=== PATIENT | male | born 2000 | race American Indian/Alaskan Native ===

== ENCOUNTER 2021-02-05 08:25 | Emergency (ER) | payer SELFPAY ==
--- NOTE | 2021-02-05 10:03 | Emergency Department Report ---
HPI - General Chief Complaint: Urogenital-Male Time Seen by Provider: 02/05/21 09:52 - HPI HPI: Room 40 Patient is a 20-year-old male present with a chief complaint of abscesses of groin and buttocks. Patient states she has had multiple abscesses in his groin bilaterally, under the scrotum and on his left gluteus which have been draining intermittently for several months. Patient states he did not seek medical attention was trying to treated at home with home remedies. The patient states today he just got tired of trying to treated at home and decided to get medical attention. Patient denies history of fever ED Past Medical Hx - Past Medical History Previous Medical History?: No - Surgical History Past Surgical History?: No - Family History Family history: no significant - Social History Smoking Status: Current Every Day Smoker (3 cigarettes daily) Substance Use Type: Alcohol (Occasional) - Medications Home Medications: Home Medications Medication Instructions Recorded Confirmed Last Taken Type HYDROcodone/APAP 5-325 [Townsend 1 - 2 each PO Q6HR PRN #10 tablet 02/05/21 Unknown Rx 5/325] Ibuprofen [Motrin 800 MG tab] 800 mg PO Q8HR PRN #20 tablet 02/05/21 Unknown Rx Sulfamethoxazole/Trimethoprim 1 each PO BID #14 tablet 02/05/21 Unknown Rx [Bactrim DS TAB] ED Review of Systems ROS: Stated complaint: POSSIBLE BACTERIA INFECTION Other details as noted in HPI Constitutional: denies: fever Eyes: denies: eye pain ENT: denies: throat pain Respiratory: no symptoms reported Cardiovascular: denies: chest pain Endocrine: no symptoms reported Gastrointestinal: denies: abdominal pain Genitourinary: denies: dysuria Musculoskeletal: denies: back pain Skin: lesions Neurological: denies: headache Physical Exam - Physical Exam Vital Signs: Vital Signs 02/05/21 08:33 Temperature 98.8 F Pulse Rate 106 H Respiratory 18 Rate Blood Pressure 141/77 O2 Sat by Pulse 99 Oximetry Physical Exam: GENERAL: The patient is well-developed well-nourished male lying on stretcher not appearing to be in acute distress. [] HEENT: Normocephalic. Atraumatic. Extraocular motions are intact. Patient has moist mucous membranes. NECK: Supple. Trachea midline CHEST/LUNGS: Clear to auscultation. There is no respiratory distress noted. HEART/CARDIOVASCULAR: Regular. There is no tachycardia. There is no gallop rub or murmur. ABDOMEN: Abdomen is soft, nontender. Patient has normal bowel sounds. There is no abdominal distention. SKIN: There is no rash. There is no edema. There is no diaphoresis. There are areas of chronic appearing skin sores of varying stages in the perineum. No active drainage appreciated. There is a large approximately 3 cm diameter region of fluctuance to the left buttocks near the gluteal cleft that is tender to palpation. NEURO: The patient is awake, alert, and oriented. The patient is cooperative. The patient has no focal neurologic deficits. The patient has normal speech MUSCULOSKELETAL: There is no evidence of acute injury. ED Course Vital Signs 02/05/21 08:33 Temperature 98.8 F Pulse Rate 106 H Respiratory 18 Rate Blood Pressure 141/77 O2 Sat by Pulse 99 Oximetry ED Medical Decision Making - Lab Data Laboratory Tests 02/05/21 11:10 POC Glucose 98 - Differential Diagnosis Abscesses, hyperglycemia Critical care attestation.: If time is entered above; I have spent that time in minutes in the direct care of this critically ill patient, excluding procedure time. ED Disposition Clinical Impression: Abscess, gluteal, left Disposition: DC-01 TO HOME OR SELFCARE Is pt being admited?: No Does the pt Need Aspirin: No Condition: Stable Instructions: Skin Abscess, [id number], Incision and Drainage, Care After Additional Instructions: Return to the emergency department should you develop worsening symptoms, inability to tolerate food or liquids, high fever or any other concerns Prescriptions: Sulfamethoxazole/Trimethoprim [Bactrim DS TAB] 1 each PO BID #14 tablet Ibuprofen [Motrin 800 MG tab] 800 mg PO Q8HR PRN #20 tablet PRN Reason: Pain, Moderate (4-6) HYDROcodone/APAP 5-325 [Townsend 5/325] 1 - 2 each PO Q6HR PRN #10 tablet PRN Reason: Pain Referrals: EDDIE BROWNING MD [Staff Physician] - 3-5 Days (Dr. Mayers is a [employer] consultant. Please follow-up with him for further evaluation) Time of Disposition: 11:58
[2021-02-05] MEDS ORDERED: SODIUM CHLORIDE IRRI 500 ML 500 ML IR ONE (10:29)
[2021-02-05] MEDS ORDERED: LIDOCAINE 1%/EPINEPHRINE 1:100,000 VIAL (20 ML) INFILTRATI ONE (10:29)
[2021-02-05] MEDS ORDERED: SODIUM CHLORIDE 0.9% IRR 500 ML BOTTLE IR SCH (10:30)
[2021-02-05] MEDS ORDERED: LIDOCAINE 1%/EPINEPHRINE 1:100,000 VIAL (20 ML) INFILTRATI SCH (10:30)
[2021-02-05 11:51] VITALS: BP 123/76
== END 2021-02-05 12:20 | disposition home or self-care (01) ==
LOC: ED 08:25
DX: L02.31 Cutaneous abscess of buttock (principal); F17.200 Nicotine dependence, unspecified, uncomplicated; Z79.899 Other long term (current) drug therapy
CPT/HCPCS: 82962